=== PATIENT | male | born 1990 | race Caucasian/White ===

== ENCOUNTER 2017-04-19 18:30 | Emergency (ER) | payer OTHER ==
[2017-04-19 18:43] VITALS: BP 141/86; PULSE 94; RESP 18; TEMP 97.7
--- NOTE | 2017-04-19 18:49 | ED ---
General Adult HPI - General Stated complaint: rt ankle pain Time Seen by Provider: 04/19/17 18:34 Source: patient, RN notes reviewed Mode of arrival: ambulatory Limitations: no limitations - History of Present Illness Initial comments: 26 yo male presents to the ER cc of right ankle pain. Patient twisted his ankle while getting off a machine today. He states he has some swelling to the right side of the ankle. He states he is able to ambulate but with some discomfort. There has been no other complaints. He denies any other injury. He denies any knee pain. Patient denies any recent fever, chills, shortness of breath, chest pain, back pain, abdominal pain, nausea vomiting, numbness or tingling, dysuria or hematuria, constipation or diarrhea, headaches or visual changes, or any other current symptoms. - Related Data Home Medications Medication Instructions Recorded Confirmed No Known Home Medications [No 04/19/17 04/19/17 Known Home Medications] Allergies Allergy/AdvReac Type Severity Reaction Status Date / Time No Known Allergies Allergy Verified 04/19/17 18:43 Review of Systems ROS Statement: Those systems with pertinent positive or pertinent negative responses have been documented in the HPI. ROS Other: All systems not noted in ROS Statement are negative. Past Medical History Past Medical History: No Reported History History of Any Multi-Drug Resistant Organisms: None Reported Past Surgical History: No Surgical Hx Reported Past Psychological History: No Psychological Hx Reported Smoking Status: Current every day smoker Past Alcohol Use History: None Reported Past Drug Use History: None Reported General Exam - General Exam Comments Initial Comments: General: The patient is awake and alert, in no distress, and does not appear acutely ill. Neck: The neck is supple, there is no tenderness. Cardiovascular: There is a regular rate and rhythm. No murmur, rub or gallop is appreciated. Respiratory: Lungs are clear to auscultation, respirations are non-labored, breath sounds are equal. No wheezes, stridor, rales, or rhonchi. Musculoskeletal: sensation intact. full range of motion of right lower extremity. no tenderness to palpation of the right knee. no proximal tibfib tenderness. full range of motion throughout. some swelling over the lateral malleolus. no tenderness throughout foot. 2+ pulses throughout. Neurological: CN II-XII intact, There are no obvious motor or sensory deficits. Coordination appears grossly intact. Speech is normal. Skin: Skin is warm and dry and no rashes or lesions are noted. Psychiatric: Normal mood and affect. Limitations: no limitations Course Vital Signs 04/19/17 18:38 Temperature 97.7 F Pulse Rate 94 Respiratory 18 Rate Blood Pressure 141/86 O2 Sat by Pulse 99 Oximetry Procedures - Orthopedic Splinting/Casting Injury #1 Side: right Lower Extremity Injury Location: ankle Lower Extremity Immobilizer: Nicholas wrap Medical Decision Making - Medical Decision Making 26 yo male presents for right ankle pain. at this time xray reviewed. Patient appears to have right ankle sprain. We placed patient in nicholas wrap. We discussed care, follow up and return parameters. Patient in agreement with plan. All questions have been answered. At this time patient will be discharged home. - Radiology Data Radiology results: report reviewed, image reviewed Disposition Clinical Impression: Right ankle sprain Disposition: HOME SELF-CARE Condition: Stable Instructions: Ankle Sprain (ED) Additional Instructions: Please use medication as discussed. Please follow up with family doctor if symptoms have not improved over the next two days. Please return to the emergency room if your symptoms increase or worsen or for any other concerns. Rest the area. Ice the area 20 min on 20 min off 4x a day. Compress the area with either the NICHOLAS bandage or wearing the splint. Elevate the area above the heart whenever possible. Referrals: Laura Villavicencio MD [STAFF PHYSICIAN] - 1-2 days Time of Disposition: 18:52
--- NOTE | 2017-04-19 18:51 | XR ---
EXAMINATION TYPE: XR ankle complete RT DATE OF EXAM: 04/19/2017 CLINICAL HISTORY: Pain and swelling TECHNIQUE: Frontal, lateral and oblique images of the right ankle are obtained. COMPARISON: None. FINDINGS: There is no acute fracture/dislocation evident in the right ankle. The ankle mortise appe ars within normal limits. Mild focal soft tissue swelling over lateral malleolus. IMPRESSION: Mild focal soft tissue swelling lateral malleolus otherwise unremarkable study.
== END 2017-04-19 18:52 | disposition home or self-care (01) ==
LOC: EC 18:30
DX: S93.401A Sprain of unspecified ligament of right ankle, initial encounter (principal); F17.200 Nicotine dependence, unspecified, uncomplicated; X50.1XXA Overexertion from prolonged static or awkward postures, initial encounter; Y93.89 Activity, other specified
CPT/HCPCS: 99283